=== PATIENT | male | born 1955 | race Caucasian/White ===

== ENCOUNTER 2019-02-24 09:57 | Inpatient (IN) | payer MEDICARE, MEDICAID ==
[~2019-02-24] VITALS: Ht 165.1 cm; Wt 62.6 kg
[2019-02-24] MEDS ORDERED: SODIUM CHLORIDE 0.9% 1000ML BAG (SEPSIS BOLUS) IV ONE (10:30)
[2019-02-24 10:53] LABS: HEMATOCRIT. 39.3 % (42.0-52.0); HEMOGLOBIN. 13.3 g/dL (14.0-18.0); MEAN CORPUSCULAR HEMOGLOBIN 32.1 pg (28.0-32.0); MEAN CORPUSCULAR VOLUME 94.5 fL (80.0-94.0); MEAN PLATELET VOLUME 9.6 fl (7.4-10.4); PLATELET 89 x1000/uL (130-400); RED BLOOD CELL COUNT 4.16 mill/uL (4.7-6.1); RED CELL DISTRIBUTION WIDTH 15.3 % (11.6-14.6)
[2019-02-24 10:57] LABS: CHLORIDE 108 mEq/L (98-107)
[2019-02-24 11:05] LABS: CREATINE KINASE 58 IU/L (39-308)
[2019-02-24 11:16] LABS: PLATELET ESTIMATE DECREASED
[2019-02-24 14:43] LABS: CLARITY URINE TURBID (CLEAR); COLOR URINE AMBER (YELLOW); KETONES URINE TRACE (NEGATIVE); LEUKOCYTE ESTERASE URINE 3+ (NEGATIVE); NITRITE URINE NEGATIVE (NEGATIVE); OCCULT BLOOD URINE 3+ (NEGATIVE); PH URINE 5.5 (4.5-8.0); PROTEIN URINE 2+ (NEGATIVE); SPECIFIC GRAVITY URINE 1.019 (1.005-1.030)
[2019-02-24 17:45] VITALS: BP 115/69
[2019-02-24 17:47] VITALS: BP 115/69
[2019-02-24] MEDS ORDERED: NITROGLYCERIN 0.4MG TABLET SL SL PRN (18:00)
[2019-02-24] MEDS ORDERED: KETOROLAC 15MG/ML VIAL IV PRN (18:00)
[2019-02-24] MEDS ORDERED: CLONIDINE 0.1MG TABLET PO PRN (18:00)
[2019-02-24] MEDS ORDERED: ZOLPIDEM TARTRATE 5MG TABLET PO PRN (18:00)
[2019-02-24] MEDS ORDERED: PIPERACILLIN/TAZ 3.375G PREMIX 50 ML IV SCH (18:00)
[2019-02-24] MEDS ORDERED: MAGNESIUM/ALUMINUM HYDROXIDE/SIMETHICONE 30ML UDC PO PRN (18:00)
[2019-02-24] MEDS ORDERED: IPRATROPIUM/ALBUTEROL 0.5-3(2.5)MG/3ML NEB NEB PRN (18:00)
[2019-02-24] MEDS: DEXT 5%/0.9% NACL 1,000 ML IV SCH (19:02)
[2019-02-24 19:36] LABS: FOLIC ACID (FOLATE) SERUM 11.4 ng/mL (>5.38)
[2019-02-24 20:00] VITALS: BP 115/71
[2019-02-24] MEDS ORDERED: ENOXAPARIN 40MG/0.4ML SYR SUBCUT SCH (20:00)
[2019-02-24] MEDS: PIPERACILLIN/TAZOBACTAM 3.375 G in DEXT 5% WATER 100 ML IV SCH (22:07)
[2019-02-24] MEDS: VANCOMYCIN 1 G PREMIX 200 ML IV SCH (22:09)
[2019-02-24] MEDS: FAMOTIDINE 20MG TABLET PO SCH (22:10)
[2019-02-24] MEDS: ASCORBIC ACID 500 MG TABLET PO SCH (22:10)
[2019-02-24] MEDS: GUAIFENESIN 200MG/10ML SUGAR FREE UDC PO PRN (22:11)
[2019-02-25] VITALS: BP 101/54
[2019-02-25 01:26] LABS: CREATINE KINASE 44 IU/L (39-308); CREATINE KINASE MB FRACTION 6.3 ng/mL (0.5-3.6)
[2019-02-25 04:00] VITALS: BP 112/56
[2019-02-25] MEDS: PIPERACILLIN/TAZOBACTAM 3.375 G in DEXT 5% WATER 100 ML IV SCH ×3 (04:52→21:13)
[2019-02-25] MEDS: DEXT 5%/0.9% NACL 1,000 ML IV SCH ×2 (04:53→15:20)
[2019-02-25 07:26] LABS: CREATINE KINASE 41 IU/L (39-308)
[2019-02-25 07:27] LABS: CREATINE KINASE MB FRACTION 5.7 ng/mL (0.5-3.6)
[2019-02-25 08:00] VITALS: BP 100/51
[2019-02-25] MEDS: FAMOTIDINE 20MG TABLET PO SCH ×2 (08:56→21:00)
[2019-02-25] MEDS: ASCORBIC ACID 500 MG TABLET PO SCH ×3 (08:56→21:00)
[2019-02-25] MEDS: ASPIRIN 325MG EC TABLET PO SCH ×2 (08:56→09:00)
[2019-02-25] MEDS: ZINC SULFATE 220 MG ( 50 ) CAPSULE PO SCH ×2 (08:57→09:00)
[2019-02-25] MEDS: VANCOMYCIN 1 G PREMIX 200 ML IV SCH ×2 (08:57→21:13)
[2019-02-25 12:00] VITALS: BP 81/34
[2019-02-25 16:00] VITALS: BP 83/54
[2019-02-25] MEDS ORDERED: SODIUM CHLORIDE 0.9% 1,000 ML IV SCH (16:45)
[2019-02-25 20:00] VITALS: BP 87/46
[2019-02-26] VITALS (7 sets, daily range): BP systolic 84–104; BP diastolic 33–54
[2019-02-26] MEDS: DEXT 5%/0.9% NACL 1,000 ML IV SCH ×3 (02:27→21:29)
[2019-02-26] MEDS: PIPERACILLIN/TAZOBACTAM 3.375 G in DEXT 5% WATER 100 ML IV SCH (05:00)
[2019-02-26 06:05] LABS: BASOPHILS % 0.6 % (0.0-2.0); EOSINOPHILS % 0.5 % (0.0-5.0); HEMATOCRIT. 32.3 % (42.0-52.0); HEMOGLOBIN. 10.9 g/dL (14.0-18.0); LYMPHOCYTES % 17.8 % (20.0-50.0); MEAN CORPUSCULAR HEMOGLOBIN 31.5 pg (28.0-32.0); MEAN CORPUSCULAR VOLUME 93.8 fL (80.0-94.0); MEAN PLATELET VOLUME 10.4 fl (7.4-10.4); MONOCYTES % 10.6 % (2.0-8.0); NEUTROPHILS % 70.5 % (40.0-76.0); PLATELET 78 x1000/uL (130-400); RED BLOOD CELL COUNT 3.44 mill/uL (4.7-6.1); RED CELL DISTRIBUTION WIDTH 14.9 % (11.6-14.6)
[2019-02-26 06:12] LABS: CHLORIDE 116 mEq/L (98-107)
[2019-02-26 06:15] LABS: INR 1.1; PROTHROMBIN TIME 10.9 sec (9.6-11.0)
[2019-02-26 06:43] LABS: HEPATITIS B SURFACE ANTIGEN NEGATIVE
[2019-02-26 07:12] LABS: HEPATITIS A AB IGM NEGATIVE (NEGATIVE)
[2019-02-26] MEDS: ZINC SULFATE 220 MG ( 50 ) CAPSULE PO SCH (09:00)
[2019-02-26] MEDS: ASPIRIN 325MG EC TABLET PO SCH (09:00)
[2019-02-26] MEDS: ASCORBIC ACID 500 MG TABLET PO SCH ×2 (09:00→21:00)
[2019-02-26] MEDS: FAMOTIDINE 20MG TABLET PO SCH ×2 (09:00→21:00)
[2019-02-26] MEDS: MEROPENEM 1,000 MG in SODIUM CHLORIDE 0.9% 100 ML IV SCH ×2 (12:24→21:30)
[2019-02-26] MEDS: VANCOMYCIN 750 MG PREMIX 150 ML IV SCH (13:09)
[2019-02-26] MEDS: ALBUMIN HUMAN 25GM/100ML (25%) IV SCH ×2 (14:51→21:31)
[2019-02-26] MEDS ORDERED: POTASSIUM CHLORIDE INJ 40 MEQ in DEXT 5% WATER 250 ML IV SCH (16:00)
[2019-02-27] VITALS: BP 106/47
[2019-02-27] MEDS: VANCOMYCIN 750 MG PREMIX 150 ML IV SCH ×2 (01:23→13:05)
[2019-02-27] MEDS ORDERED: BACL-141 PO (02:49)
[2019-02-27] MEDS ORDERED: SIMV10TA6 PO (02:49)
[2019-02-27] MEDS ORDERED: RISP1TAB26 PO (02:49)
[2019-02-27] MEDS ORDERED: DIPH50CA47 PO (02:49)
[2019-02-27] MEDS ORDERED: OMEP20CA5 PO (02:49)
[2019-02-27] MEDS ORDERED: FERR325T6 PO (02:49)
[2019-02-27 04:00] VITALS: BP 95/51
[2019-02-27] MEDS: MEROPENEM 1,000 MG in SODIUM CHLORIDE 0.9% 100 ML IV SCH ×3 (04:54→20:49)
[2019-02-27] MEDS: ALBUMIN HUMAN 25GM/100ML (25%) IV SCH (05:00)
[2019-02-27] MEDS: DEXT 5%/0.9% NACL 1,000 ML IV SCH ×2 (05:01→18:36)
[2019-02-27 08:00] VITALS: BP 99/55
[2019-02-27] MEDS: ASCORBIC ACID 500 MG TABLET PO SCH ×2 (09:00→20:49)
[2019-02-27] MEDS: ZINC SULFATE 220 MG ( 50 ) CAPSULE PO SCH (09:00)
[2019-02-27] MEDS: ASPIRIN 325MG EC TABLET PO SCH (09:00)
[2019-02-27] MEDS: FAMOTIDINE 20MG TABLET PO SCH ×2 (09:00→20:49)
[2019-02-27 12:00] VITALS: BP 126/73
[2019-02-27 16:00] VITALS: BP 141/73
[2019-02-27 20:00] VITALS: BP 111/64
[2019-02-28] VITALS: BP 118/63
[2019-02-28] MEDS: VANCOMYCIN 750 MG PREMIX 150 ML IV SCH ×2 (00:28→14:22)
[2019-02-28 04:00] VITALS: BP 124/61
[2019-02-28] MEDS: DEXT 5%/0.9% NACL 1,000 ML IV SCH ×2 (04:28→14:20)
[2019-02-28] MEDS: MEROPENEM 1,000 MG in SODIUM CHLORIDE 0.9% 100 ML IV SCH ×3 (04:28→21:06)
[2019-02-28 08:00] VITALS: BP 121/58
[2019-02-28] MEDS: FAMOTIDINE 20MG TABLET PO SCH ×2 (09:00→21:00)
[2019-02-28] MEDS: ZINC SULFATE 220 MG ( 50 ) CAPSULE PO SCH (09:00)
[2019-02-28] MEDS: ASCORBIC ACID 500 MG TABLET PO SCH ×2 (09:00→21:00)
[2019-02-28] MEDS: ASPIRIN 325MG EC TABLET PO SCH (09:00)
[2019-02-28 12:00] VITALS: BP 124/69
[2019-02-28 16:00] VITALS: BP 126/57
[2019-02-28 20:00] VITALS: BP 132/66
[2019-03-01] VITALS: BP 121/71
[2019-03-01] MEDS: VANCOMYCIN 1 G PREMIX 200 ML IV SCH ×2 (02:36→13:48)
[2019-03-01] MEDS: DEXT 5%/0.9% NACL 1,000 ML IV SCH (02:42)
[2019-03-01 04:00] VITALS: BP 125/56
[2019-03-01] MEDS: MEROPENEM 1,000 MG in SODIUM CHLORIDE 0.9% 100 ML IV SCH ×3 (05:06→22:32)
[2019-03-01 07:18] LABS: BASOPHILS % 0.4 % (0.0-2.0); EOSINOPHILS % 0.9 % (0.0-5.0); HEMATOCRIT. 32.1 % (42.0-52.0); HEMOGLOBIN. 10.9 g/dL (14.0-18.0); LYMPHOCYTES % 11.5 % (20.0-50.0); MEAN CORPUSCULAR HEMOGLOBIN 32.4 pg (28.0-32.0); MEAN CORPUSCULAR VOLUME 95.3 fL (80.0-94.0); MEAN PLATELET VOLUME 10.9 fl (7.4-10.4); MONOCYTES % 9.7 % (2.0-8.0); NEUTROPHILS % 77.5 % (40.0-76.0); PLATELET 89 x1000/uL (130-400); RED BLOOD CELL COUNT 3.37 mill/uL (4.7-6.1); RED CELL DISTRIBUTION WIDTH 15.2 % (11.6-14.6)
[2019-03-01 07:36] LABS: CHLORIDE 121 mEq/L (98-107)
[2019-03-01 08:00] VITALS: BP 110/65
[2019-03-01] MEDS: ZINC SULFATE 220 MG ( 50 ) CAPSULE PO SCH (09:00)
[2019-03-01] MEDS: FAMOTIDINE 20MG TABLET PO SCH ×2 (09:00→22:32)
[2019-03-01] MEDS: ASPIRIN 325MG EC TABLET PO SCH (09:00)
[2019-03-01] MEDS: ASCORBIC ACID 500 MG TABLET PO SCH ×2 (09:00→22:33)
[2019-03-01] MEDS: POTASSIUM CHLORIDE INJ 40 MEQ in DEXT 5% WATER 250 ML IV NR ×2 (11:44→15:46)
[2019-03-01 12:00] VITALS: BP 122/59
[2019-03-01 16:00] VITALS: BP 121/56
[2019-03-01 20:35] VITALS: BP 122/80
[2019-03-02 00:06] VITALS: BP 130/50
[2019-03-02 04:00] VITALS: BP 137/58
[2019-03-02] MEDS: VANCOMYCIN 1 G PREMIX 200 ML IV SCH ×2 (05:39→21:55)
[2019-03-02] MEDS: MEROPENEM 1,000 MG in SODIUM CHLORIDE 0.9% 100 ML IV SCH ×3 (05:40→21:54)
[2019-03-02 07:58] LABS: BASOPHILS % 0.6 % (0.0-2.0); EOSINOPHILS % 3.1 % (0.0-5.0); HEMATOCRIT. 34.7 % (42.0-52.0); HEMOGLOBIN. 11.8 g/dL (14.0-18.0); LYMPHOCYTES % 13.5 % (20.0-50.0); MEAN CORPUSCULAR HEMOGLOBIN 32.3 pg (28.0-32.0); MEAN CORPUSCULAR VOLUME 95.2 fL (80.0-94.0); MONOCYTES % 8.6 % (2.0-8.0); NEUTROPHILS % 74.2 % (40.0-76.0); PLATELET 124 x1000/uL (130-400); RED BLOOD CELL COUNT 3.65 mill/uL (4.7-6.1)
[2019-03-02 08:00] VITALS: BP 121/56
[2019-03-02 08:32] LABS: CHLORIDE 120 mEq/L (98-107)
[2019-03-02] MEDS: ASCORBIC ACID 500 MG TABLET PO SCH ×2 (09:30→21:52)
[2019-03-02] MEDS: ZINC SULFATE 220 MG ( 50 ) CAPSULE PO SCH (09:31)
[2019-03-02] MEDS: ASPIRIN 325MG EC TABLET PO SCH (09:31)
[2019-03-02] MEDS: DEXT 5%/0.9% NACL 1,000 ML IV SCH (09:36)
[2019-03-02] MEDS: FAMOTIDINE 20MG TABLET PO SCH ×2 (09:40→21:53)
[2019-03-02 12:00] VITALS: BP 112/47
[2019-03-02 16:00] VITALS: BP 95/65
[2019-03-02 20:04] VITALS: BP 114/60
[2019-03-02] MEDS: ACETAMINOPHEN 325MG TABLET PO PRN (23:45)
[2019-03-03 00:11] VITALS: BP 102/60
[2019-03-03 04:00] VITALS: BP 111/58
[2019-03-03 06:55] LABS: BASOPHILS % 0.8 % (0.0-2.0); EOSINOPHILS % 6.1 % (0.0-5.0); HEMOGLOBIN. 11.8 g/dL (14.0-18.0); LYMPHOCYTES % 13.7 % (20.0-50.0); MEAN CORPUSCULAR HEMOGLOBIN 32.2 pg (28.0-32.0); MEAN CORPUSCULAR VOLUME 95.6 fL (80.0-94.0); MEAN PLATELET VOLUME 10.8 fl (7.4-10.4); MONOCYTES % 6.2 % (2.0-8.0); NEUTROPHILS % 73.2 % (40.0-76.0); PLATELET 156 x1000/uL (130-400); RED BLOOD CELL COUNT 3.66 mill/uL (4.7-6.1); RED CELL DISTRIBUTION WIDTH 14.8 % (11.6-14.6)
[2019-03-03 07:33] LABS: CHLORIDE 116 mEq/L (98-107)
[2019-03-03 08:00] VITALS: BP 104/56
[2019-03-03] MEDS: FAMOTIDINE 20MG TABLET PO SCH ×2 (09:42→23:12)
[2019-03-03] MEDS: DOCUSATE SODIUM 100MG CAPSULE PO PRN (09:42)
[2019-03-03] MEDS: ZINC SULFATE 220 MG ( 50 ) CAPSULE PO SCH (09:42)
[2019-03-03] MEDS: ASPIRIN 325MG EC TABLET PO SCH (09:42)
[2019-03-03] MEDS: ASCORBIC ACID 500 MG TABLET PO SCH ×2 (09:42→23:12)
[2019-03-03] MEDS: VANCOMYCIN 1 G PREMIX 200 ML IV SCH ×2 (10:17→18:24)
[2019-03-03 12:00] VITALS: BP 109/66
[2019-03-03] MEDS: MEROPENEM 1,000 MG in SODIUM CHLORIDE 0.9% 100 ML IV SCH ×3 (13:00→23:12)
[2019-03-03 16:00] VITALS: BP 114/62
[2019-03-03 20:50] VITALS: BP 106/73
[2019-03-04 00:26] VITALS: BP 113/70
[2019-03-04 04:00] VITALS: BP 107/52
[2019-03-04] MEDS: MEROPENEM 1,000 MG in SODIUM CHLORIDE 0.9% 100 ML IV SCH ×2 (05:47→20:23)
[2019-03-04 06:15] LABS: BASOPHILS % 0.7 % (0.0-2.0); EOSINOPHILS % 4.9 % (0.0-5.0); HEMATOCRIT. 37.8 % (42.0-52.0); HEMOGLOBIN. 12.4 g/dL (14.0-18.0); LYMPHOCYTES % 10.4 % (20.0-50.0); MEAN CORPUSCULAR HEMOGLOBIN 31.9 pg (28.0-32.0); MEAN CORPUSCULAR VOLUME 96.8 fL (80.0-94.0); MEAN PLATELET VOLUME 11.4 fl (7.4-10.4); MONOCYTES % 4.2 % (2.0-8.0); NEUTROPHILS % 79.8 % (40.0-76.0); PLATELET 163 x1000/uL (130-400); RED CELL DISTRIBUTION WIDTH 15.4 % (11.6-14.6)
[2019-03-04 06:20] LABS: CHLORIDE 114 mEq/L (98-107)
[2019-03-04 08:00] VITALS: BP 94/60
[2019-03-04] MEDS: FAMOTIDINE 20MG TABLET PO SCH ×2 (10:03→20:23)
[2019-03-04] MEDS: ASPIRIN 325MG EC TABLET PO SCH (10:03)
[2019-03-04] MEDS: ASCORBIC ACID 500 MG TABLET PO SCH ×2 (10:03→20:23)
[2019-03-04] MEDS: GUAIFENESIN 200MG/10ML SUGAR FREE UDC PO PRN (10:04)
[2019-03-04] MEDS: ZINC SULFATE 220 MG ( 50 ) CAPSULE PO SCH (10:07)
[2019-03-04 12:00] VITALS: BP 106/63
[2019-03-04 16:00] VITALS: BP 100/56
[2019-03-04 20:23] VITALS: BP 106/53
[2019-03-05 00:15] VITALS: BP 97/62
[2019-03-05 04:28] VITALS: BP 108/55
[2019-03-05 06:34] LABS: CHLORIDE 116 mEq/L (98-107)
[2019-03-05] MEDS: MEROPENEM 1,000 MG in SODIUM CHLORIDE 0.9% 100 ML IV SCH ×3 (06:34→21:36)
[2019-03-05 07:28] LABS: BASOPHILS % 0.7 % (0.0-2.0); EOSINOPHILS % 1.9 % (0.0-5.0); HEMOGLOBIN. 11.1 g/dL (14.0-18.0); LYMPHOCYTES % 8.5 % (20.0-50.0); MEAN CORPUSCULAR HEMOGLOBIN 32.2 pg (28.0-32.0); MEAN CORPUSCULAR VOLUME 95.9 fL (80.0-94.0); MONOCYTES % 4.3 % (2.0-8.0); NEUTROPHILS % 84.6 % (40.0-76.0); PLATELET 185 x1000/uL (130-400); RED BLOOD CELL COUNT 3.44 mill/uL (4.7-6.1); RED CELL DISTRIBUTION WIDTH 15.2 % (11.6-14.6)
[2019-03-05 08:00] VITALS: BP 108/57
[2019-03-05] MEDS: ZINC SULFATE 220 MG ( 50 ) CAPSULE PO SCH (09:03)
[2019-03-05] MEDS: FAMOTIDINE 20MG TABLET PO SCH ×2 (09:03→20:40)
[2019-03-05] MEDS: ASCORBIC ACID 500 MG TABLET PO SCH ×2 (09:03→20:40)
[2019-03-05] MEDS: ASPIRIN 325MG EC TABLET PO SCH (09:03)
[2019-03-05 12:00] VITALS: BP 99/48
[2019-03-05 16:00] VITALS: BP 118/64
[2019-03-05 20:00] VITALS: BP 126/69
[2019-03-06 00:16] VITALS: BP 117/62
[2019-03-06 04:36] VITALS: BP 123/68
[2019-03-06 08:56] VITALS: BP 132/70
[2019-03-06] MEDS: ZINC SULFATE 220 MG ( 50 ) CAPSULE PO SCH (09:06)
[2019-03-06] MEDS: ASCORBIC ACID 500 MG TABLET PO SCH ×2 (09:06→20:40)
[2019-03-06] MEDS: FAMOTIDINE 20MG TABLET PO SCH ×2 (09:06→20:40)
[2019-03-06] MEDS: ASPIRIN 325MG EC TABLET PO SCH (09:06)
[2019-03-06 12:21] VITALS: BP 126/57
[2019-03-06 16:07] VITALS: BP 134/68
[2019-03-06] MEDS: ACETAMINOPHEN 325MG TABLET PO PRN (16:47)
[2019-03-06 20:00] VITALS: BP 117/64
[2019-03-07] VITALS (8 sets, daily range): BP systolic 82–129; BP diastolic 44–84
[2019-03-07] MEDS: ACETAMINOPHEN 325MG TABLET PO PRN (04:22)
[2019-03-07] MEDS: ASPIRIN 325MG EC TABLET PO SCH (09:00)
[2019-03-07] MEDS: FAMOTIDINE 20MG TABLET PO SCH ×2 (09:00→21:00)
[2019-03-07] MEDS: GUAIFENESIN 200MG/10ML SUGAR FREE UDC PO PRN (09:49)
[2019-03-07] MEDS: ASCORBIC ACID 500 MG TABLET PO SCH ×2 (09:49→21:00)
[2019-03-07] MEDS: ZINC SULFATE 220 MG ( 50 ) CAPSULE PO SCH (09:49)
[2019-03-07 15:11] LABS: BG CARBOXYHEMOGLOBIN 1.3 % (0.5-1.5); BG DEOXYHEMOGLOBIN 2.4 % (0.0-5.0); BG FRACTION INSPIRED OXYGEN 100; BG HCO3 ACT 26.2 mmol/L (22.0-26.0); BG METHEMOGLOBIN 0.1 % (0.0-1.5); BG OXYGEN SATURATION 97.6 % (92.0-98.5); BG OXYHEMOGLOBIN 96.2 % (94.0-97.0); BG PCO2 43.9 mmHg (35.0-45.0); BG PH 7.394 (7.350-7.450); BG PO2 101.6 mmHg (75.0-100.0); BG SAMPLE SITE LEFT RADIAL; BG TOTAL HEMOGLOBIN 13.8 g/dL (12.0-18.0); BG VENT MODE MASK - NRB
[2019-03-07 17:21] LABS: BASOPHILS % 1.4 % (0.0-2.0); EOSINOPHILS % 0.4 % (0.0-5.0); HEMATOCRIT. 37.9 % (42.0-52.0); HEMOGLOBIN. 12.9 g/dL (14.0-18.0); LYMPHOCYTES % 9.4 % (20.0-50.0); MEAN CORPUSCULAR HEMOGLOBIN 32.6 pg (28.0-32.0); MEAN CORPUSCULAR VOLUME 96.3 fL (80.0-94.0); MEAN PLATELET VOLUME 10.1 fl (7.4-10.4); MONOCYTES % 10.1 % (2.0-8.0); NEUTROPHILS % 78.7 % (40.0-76.0); PLATELET 333 x1000/uL (130-400); RED BLOOD CELL COUNT 3.94 mill/uL (4.7-6.1); RED CELL DISTRIBUTION WIDTH 15.2 % (11.6-14.6)
[2019-03-07 17:27] LABS: CHLORIDE 115 mEq/L (98-107)
[2019-03-07] MEDS: PIPERACILLIN/TAZOBACTAM 3.375 G in DEXT 5% WATER 100 ML IV SCH (18:00)
[2019-03-07] MEDS ORDERED: POTASSIUM CHLORIDE INJ 40 MEQ in DEXT 5% WATER 500 ML IV NR (20:00)
[2019-03-07] MEDS: DEXT 5%/0.45% NACL KCL 20MEQ/L 1,000 ML IV SCH (20:50)
[2019-03-07] MEDS: IPRATROPIUM/ALBUTEROL 0.5-3(2.5)MG/3ML NEB HHN SCH (21:11)
[2019-03-08] VITALS (13 sets, daily range): BP systolic 77–111; BP diastolic 41–60
[2019-03-08] MEDS: IPRATROPIUM/ALBUTEROL 0.5-3(2.5)MG/3ML NEB HHN SCH ×4 (00:25→21:20)
[2019-03-08] MEDS: ACETAMINOPHEN 325MG TABLET PO PRN (01:48)
[2019-03-08] MEDS: PIPERACILLIN/TAZOBACTAM 3.375 G in DEXT 5% WATER 100 ML IV SCH ×5 (05:39→18:18)
[2019-03-08] MEDS: DEXT 5%/0.45% NACL KCL 20MEQ/L 1,000 ML IV SCH ×2 (06:29→12:50)
[2019-03-08] MEDS: ASCORBIC ACID 500 MG TABLET PO SCH ×2 (09:05→21:40)
[2019-03-08] MEDS: ASPIRIN 325MG EC TABLET PO SCH (09:05)
[2019-03-08] MEDS: ZINC SULFATE 220 MG ( 50 ) CAPSULE PO SCH (09:05)
[2019-03-08 09:42] LABS: BASOPHILS % 1.5 % (0.0-2.0); EOSINOPHILS % 5.3 % (0.0-5.0); HEMATOCRIT. 32.4 % (42.0-52.0); HEMOGLOBIN. 10.6 g/dL (14.0-18.0); MEAN CORPUSCULAR HEMOGLOBIN 32.2 pg (28.0-32.0); MEAN CORPUSCULAR VOLUME 98.1 fL (80.0-94.0); MEAN PLATELET VOLUME 10.4 fl (7.4-10.4); MONOCYTES % 11.1 % (2.0-8.0); NEUTROPHILS % 65.1 % (40.0-76.0); PLATELET 213 x1000/uL (130-400); RED CELL DISTRIBUTION WIDTH 15.1 % (11.6-14.6)
[2019-03-08 09:50] LABS: CHLORIDE 116 mEq/L (98-107)
[2019-03-08] MEDS ORDERED: POTASSIUM CHLORIDE 20MEQ/PACKET PO NR (12:45)
[2019-03-08] MEDS: FAMOTIDINE 20MG TABLET PO SCH ×2 (13:04→21:40)
[2019-03-08] MEDS ORDERED: POTASSIUM CHLORIDE INJ 40 MEQ in DEXT 5% WATER 500 ML IV NR (14:00)
[2019-03-08 17:21] LABS: BG BASE EXCESS 2.1 mmol/L (-2.0-2.0); BG CARBOXYHEMOGLOBIN 0.3 % (0.5-1.5); BG DEOXYHEMOGLOBIN 9.6 % (0.0-5.0); BG HCO3 ACT 24.7 mmol/L (22.0-26.0); BG METHEMOGLOBIN 0.3 % (0.0-1.5); BG OXYGEN SATURATION 90.3 % (92.0-98.5); BG OXYHEMOGLOBIN 89.8 % (94.0-97.0); BG PCO2 31.2 mmHg (35.0-45.0); BG PH 7.516 (7.350-7.450); BG PO2 54.6 mmHg (75.0-100.0); BG SAMPLE SITE RIGHT BRACHIAL; BG TOTAL HEMOGLOBIN 10.3 g/dL (12.0-18.0); BG VENT MODE NASAL CANNULA
[2019-03-09] VITALS (12 sets, daily range): BP systolic 98–137; BP diastolic 51–71
[2019-03-09] MEDS: PIPERACILLIN/TAZOBACTAM 3.375 G in DEXT 5% WATER 100 ML IV SCH ×5 (01:06→23:25)
[2019-03-09] MEDS: IPRATROPIUM/ALBUTEROL 0.5-3(2.5)MG/3ML NEB HHN SCH ×4 (01:56→20:52)
[2019-03-09] MEDS: DEXT 5%/0.45% NACL KCL 20MEQ/L 1,000 ML IV SCH ×2 (03:16→12:58)
[2019-03-09 09:01] LABS: BG BASE EXCESS 0.4 mmol/L (-2.0-2.0); BG CARBOXYHEMOGLOBIN 0.3 % (0.5-1.5); BG DEOXYHEMOGLOBIN 5.2 % (0.0-5.0); BG FRACTION INSPIRED OXYGEN 21; BG HCO3 ACT 23.6 mmol/L (22.0-26.0); BG METHEMOGLOBIN 0.3 % (0.0-1.5); BG OXYGEN SATURATION 94.8 % (92.0-98.5); BG OXYHEMOGLOBIN 94.2 % (94.0-97.0); BG PCO2 32.5 mmHg (35.0-45.0); BG PH 7.478 (7.350-7.450); BG PO2 73.3 mmHg (75.0-100.0); BG SAMPLE SITE LEFT RADIAL; BG TOTAL HEMOGLOBIN 10.3 g/dL (12.0-18.0); BG VENT MODE ROOM AIR
[2019-03-09] MEDS: ASPIRIN 325MG EC TABLET PO SCH (09:53)
[2019-03-09] MEDS: ZINC SULFATE 220 MG ( 50 ) CAPSULE PO SCH (09:54)
[2019-03-09] MEDS: FAMOTIDINE 20MG TABLET PO SCH ×2 (09:54→21:12)
[2019-03-09] MEDS: ASCORBIC ACID 500 MG TABLET PO SCH ×2 (09:54→20:11)
[2019-03-09 17:34] LABS: BASOPHILS % 1.7 % (0.0-2.0); EOSINOPHILS % 6.7 % (0.0-5.0); HEMATOCRIT. 30.8 % (42.0-52.0); LYMPHOCYTES % 20.2 % (20.0-50.0); MEAN CORPUSCULAR HEMOGLOBIN 31.5 pg (28.0-32.0); MEAN CORPUSCULAR VOLUME 96.7 fL (80.0-94.0); MEAN PLATELET VOLUME 9.7 fl (7.4-10.4); MONOCYTES % 6.8 % (2.0-8.0); NEUTROPHILS % 64.6 % (40.0-76.0); PLATELET 221 x1000/uL (130-400); RED BLOOD CELL COUNT 3.19 mill/uL (4.7-6.1); RED CELL DISTRIBUTION WIDTH 15.1 % (11.6-14.6)
[2019-03-09 17:37] LABS: INR 1.2; PROTHROMBIN TIME 11.9 sec (9.6-11.0)
[2019-03-09 17:39] LABS: CHLORIDE 116 mEq/L (98-107)
[2019-03-09 17:45] LABS: PHOSPHORUS 1.8 mg/dL (2.5-4.9)
[2019-03-09] MEDS ORDERED: WATER IV SCH (19:00)
[2019-03-09] MEDS ORDERED: DEXT 5% IV SCH (19:00)
[2019-03-09] MEDS ORDERED: POTASSIUM CHLORIDE IV SCH (19:00)
[2019-03-09] MEDS ORDERED: POTASSIUM-SODIUM PHOSPHATE POWDER PACKET NG NR ×2 (19:00→21:00)
[2019-03-09] MEDS: DEXT 5%/0.45% NACL KCL 40MEQ/L 1,000 ML IV SCH (23:25)
[2019-03-10] VITALS (7 sets, daily range): BP systolic 101–130; BP diastolic 55–72
[2019-03-10] MEDS: IPRATROPIUM/ALBUTEROL 0.5-3(2.5)MG/3ML NEB HHN SCH ×4 (02:13→21:36)
[2019-03-10] MEDS: PIPERACILLIN/TAZOBACTAM 3.375 G in DEXT 5% WATER 100 ML IV SCH ×4 (05:12→22:59)
[2019-03-10 07:06] LABS: CHLORIDE 112 mEq/L (98-107)
[2019-03-10 07:15] LABS: PHOSPHORUS 2.2 mg/dL (2.5-4.9)
[2019-03-10] MEDS: FAMOTIDINE 20MG TABLET PO SCH ×2 (08:30→21:30)
[2019-03-10] MEDS: ASPIRIN 325MG EC TABLET PO SCH (08:30)
[2019-03-10] MEDS: ASCORBIC ACID 500 MG TABLET PO SCH ×2 (08:30→21:30)
[2019-03-10] MEDS: ZINC SULFATE 220 MG ( 50 ) CAPSULE PO SCH (08:30)
[2019-03-10] MEDS: DEXT 5%/0.45% NACL KCL 40MEQ/L 1,000 ML IV SCH ×2 (12:48→21:30)
[2019-03-10] MEDS ORDERED: POTASSIUM CHLORIDE INJ 40 MEQ in DEXT 5% WATER 250 ML IV NR (14:00)
[2019-03-10] MEDS ORDERED: MAGNESIUM 2 G PREMIX 50 ML IV NR (14:30)
[2019-03-10] MEDS: ACETYLCYSTEINE 100MG/ML 10% VIAL 4ML INH SCH (16:03)
[2019-03-10] MEDS ORDERED: METOCLOPRAMIDE HCL 10MG/2ML VIAL IV NR (16:15)
[2019-03-10] MEDS ORDERED: POTASSIUM CHLORIDE 20MEQ/PACKET PO NR (16:30)
[2019-03-10] MEDS ORDERED: FENTANYL CITRATE/PF 50MCG/ML 2ML VIAL ONE (18:46)
[2019-03-10] MEDS ORDERED: SIMETHICONE 40 MG/0.6 ML 30ML ONE (18:46)
[2019-03-10] MEDS ORDERED: MIDAZOLAM HCL 5 MG/5 ML VIAL ONE (18:46)
[2019-03-10] MEDS ORDERED: FENTANYL CITRATE/PF 50MCG/ML 2ML VIAL IV PRN (18:56)
[2019-03-10] MEDS ORDERED: MIDAZOLAM HCL 5 MG/5 ML VIAL IV PRN (18:57)
[2019-03-11] VITALS (9 sets, daily range): BP systolic 93–133; BP diastolic 53–74
[2019-03-11] MEDS: ACETYLCYSTEINE 100MG/ML 10% VIAL 4ML INH SCH ×3 (00:46→15:42)
[2019-03-11] MEDS: IPRATROPIUM/ALBUTEROL 0.5-3(2.5)MG/3ML NEB HHN SCH ×6 (00:46→21:00)
[2019-03-11] MEDS: PIPERACILLIN/TAZOBACTAM 3.375 G in DEXT 5% WATER 100 ML IV SCH ×3 (05:13→18:51)
[2019-03-11] MEDS: ASCORBIC ACID 500 MG TABLET PO SCH ×2 (08:25→21:29)
[2019-03-11] MEDS: DEXT 5%/0.45% NACL KCL 40MEQ/L 1,000 ML IV SCH (08:25)
[2019-03-11] MEDS: ASPIRIN 325MG EC TABLET PO SCH (08:25)
[2019-03-11] MEDS: ZINC SULFATE 220 MG ( 50 ) CAPSULE PO SCH (08:26)
[2019-03-11] MEDS: FAMOTIDINE 20MG TABLET PO SCH ×2 (08:26→21:29)
[2019-03-11] MEDS ORDERED: FUROSEMIDE 40MG/4ML VIAL IVP SCH (13:15)
[2019-03-11 17:52] LABS: CHLORIDE 110 mEq/L (98-107)
[2019-03-11 17:58] LABS: PHOSPHORUS 3.1 mg/dL (2.5-4.9)
[2019-03-12] VITALS (14 sets, daily range): BP systolic 88–117; BP diastolic 45–71
[2019-03-12] MEDS ORDERED: DEXT 5%/0.45% NACL 1000ML 1,000 ML IV ONE
[2019-03-12] MEDS: PIPERACILLIN/TAZOBACTAM 3.375 G in DEXT 5% WATER 100 ML IV SCH ×5 (00:14→23:11)
[2019-03-12] MEDS: ACETYLCYSTEINE 100MG/ML 10% VIAL 4ML INH SCH ×3 (00:29→17:05)
[2019-03-12] MEDS: IPRATROPIUM/ALBUTEROL 0.5-3(2.5)MG/3ML NEB HHN SCH ×6 (00:30→21:25)
[2019-03-12 06:04] LABS: CHLORIDE 108 mEq/L (98-107)
[2019-03-12 06:29] LABS: BASOPHILS % 0.7 % (0.0-2.0); EOSINOPHILS % 4.3 % (0.0-5.0); HEMATOCRIT. 33.6 % (42.0-52.0); HEMOGLOBIN. 11.2 g/dL (14.0-18.0); MEAN CORPUSCULAR HEMOGLOBIN 31.9 pg (28.0-32.0); MEAN CORPUSCULAR VOLUME 95.5 fL (80.0-94.0); MEAN PLATELET VOLUME 9.8 fl (7.4-10.4); MONOCYTES % 4.2 % (2.0-8.0); NEUTROPHILS % 74.8 % (40.0-76.0); PLATELET 282 x1000/uL (130-400); RED BLOOD CELL COUNT 3.52 mill/uL (4.7-6.1); RED CELL DISTRIBUTION WIDTH 14.9 % (11.6-14.6)
[2019-03-12] MEDS: ZINC SULFATE 220 MG ( 50 ) CAPSULE PO SCH (08:50)
[2019-03-12] MEDS: FAMOTIDINE 20MG TABLET PO SCH ×2 (08:50→20:20)
[2019-03-12] MEDS: ASPIRIN 325MG EC TABLET PO SCH (08:50)
[2019-03-12] MEDS: ASCORBIC ACID 500 MG TABLET PO SCH ×2 (08:51→20:19)
[2019-03-12] MEDS ORDERED: POTASSIUM CHLORIDE INJ 40 MEQ in DEXT 5% WATER 250 ML IV SCH (09:30)
[2019-03-12] MEDS ORDERED: MIDAZOLAM HCL 5 MG/5 ML VIAL ONE (10:51)
[2019-03-12] MEDS ORDERED: FENTANYL CITRATE/PF 50MCG/ML 2ML VIAL ONE (10:51)
[2019-03-12] MEDS ORDERED: MIDAZOLAM HCL 5 MG/5 ML VIAL IV PRN (11:00)
[2019-03-13] VITALS (14 sets, daily range): BP systolic 99–123; BP diastolic 48–73
[2019-03-13] MEDS: IPRATROPIUM/ALBUTEROL 0.5-3(2.5)MG/3ML NEB HHN SCH ×6 (00:49→20:18)
[2019-03-13] MEDS: ACETYLCYSTEINE 100MG/ML 10% VIAL 4ML INH SCH ×3 (00:49→16:04)
[2019-03-13] MEDS: PIPERACILLIN/TAZOBACTAM 3.375 G in DEXT 5% WATER 100 ML IV SCH ×4 (05:20→23:53)
[2019-03-13] MEDS: ASCORBIC ACID 500 MG TABLET PO SCH ×2 (08:49→21:18)
[2019-03-13] MEDS: ASPIRIN 325MG EC TABLET PO SCH (08:49)
[2019-03-13] MEDS: FAMOTIDINE 20MG TABLET PO SCH ×2 (08:49→21:18)
[2019-03-13] MEDS: ZINC SULFATE 220 MG ( 50 ) CAPSULE PO SCH (08:49)
[2019-03-13] MEDS: ONDANSETRON HCL 4MG/2ML INJ IV PRN (23:53)
[2019-03-14] VITALS (11 sets, daily range): BP systolic 85–114; BP diastolic 38–71
[2019-03-14] MEDS: ACETYLCYSTEINE 100MG/ML 10% VIAL 4ML INH SCH ×3 (00:13→15:00)
[2019-03-14] MEDS: IPRATROPIUM/ALBUTEROL 0.5-3(2.5)MG/3ML NEB HHN SCH ×6 (00:14→19:58)
[2019-03-14] MEDS: GUAIFENESIN 200MG/10ML SUGAR FREE UDC PO PRN (05:44)
[2019-03-14] MEDS: PIPERACILLIN/TAZOBACTAM 3.375 G in DEXT 5% WATER 100 ML IV SCH ×3 (05:44→17:03)
[2019-03-14] MEDS: ASCORBIC ACID 500 MG TABLET PO SCH ×2 (08:49→20:34)
[2019-03-14] MEDS: ZINC SULFATE 220 MG ( 50 ) CAPSULE PO SCH (08:49)
[2019-03-14] MEDS: ASPIRIN 325MG EC TABLET PO SCH (08:49)
[2019-03-14] MEDS: FAMOTIDINE 20MG TABLET PO SCH ×2 (08:49→20:31)
[2019-03-14] MEDS: ONDANSETRON HCL 4MG/2ML INJ IV PRN (20:34)
[2019-03-15] VITALS (9 sets, daily range): BP systolic 87–105; BP diastolic 45–67
[2019-03-15] MEDS: ACETYLCYSTEINE 100MG/ML 10% VIAL 4ML INH SCH ×3 (00:21→12:34)
[2019-03-15] MEDS: IPRATROPIUM/ALBUTEROL 0.5-3(2.5)MG/3ML NEB HHN SCH ×3 (00:21→12:34)
[2019-03-15] MEDS: FAMOTIDINE 20MG TABLET PO SCH (09:37)
[2019-03-15] MEDS: ASPIRIN 325MG EC TABLET PO SCH (09:37)
[2019-03-15] MEDS: ZINC SULFATE 220 MG ( 50 ) CAPSULE PO SCH (09:37)
[2019-03-15] MEDS: GUAIFENESIN 200MG/10ML SUGAR FREE UDC PO PRN (09:37)
[2019-03-15] MEDS: DOCUSATE SODIUM 100MG CAPSULE PO PRN (09:38)
[2019-03-15] MEDS: ASCORBIC ACID 500 MG TABLET PO SCH (09:38)
== END 2019-03-15 14:30 | DRG 720 ==
LOC: ER 09:57 → 6WST 15:04 → EDBEDREQ 15:09 → ENRESERV 16:15 → 5EST 03-07 14:57
PROVIDERS: ADMIT Internal Medicine; ATTEND Internal Medicine
PROC: 0DB68ZX Excision of Stomach, Via Natural or Artificial Opening Endoscopic, Diagnostic (ICD-10-PCS; principal; 2019-03-10)
PROC: 0DH63UZ Insertion of Feeding Device into Stomach, Percutaneous Approach (ICD-10-PCS; 2019-03-12)
DX: A41.51 Sepsis due to Escherichia coli [E. coli] (principal); J96.01 Acute respiratory failure with hypoxia; K72.00 Acute and subacute hepatic failure without coma; J69.0 Pneumonitis due to inhalation of food and vomit; L89.229 Pressure ulcer of left hip, unspecified stage; G92 Toxic encephalopathy; E44.0 Moderate protein-calorie malnutrition; K29.71 Gastritis, unspecified, with bleeding; R13.12 Dysphagia, oropharyngeal phase; G80.9 Cerebral palsy, unspecified; Z86.73 Personal history of transient ischemic attack (TIA), and cerebral infarction without residual deficits; N39.0 Urinary tract infection, site not specified; I11.9 Hypertensive heart disease without heart failure; D63.8 Anemia in other chronic diseases classified elsewhere; D75.89 Other specified diseases of blood and blood-forming organs; E77.8 Other disorders of glycoprotein metabolism; K44.9 Diaphragmatic hernia without obstruction or gangrene; E83.42 Hypomagnesemia; E87.1 Hypo-osmolality and hyponatremia; E87.6 Hypokalemia; Z79.899 Other long term (current) drug therapy; Z68.23 Body mass index [BMI] 23.0-23.9, adult
CPT/HCPCS: 36415; 36600; 71045; 74018; 76700; 80048; 80061; 80076; 80202; 81003; 82375; 82550; 82553; 82607; 82746; 82805; 82962; 83036; 83540; 83550; 83605; 83735; 83880; 84100; 84132; 84134; 84145; 84484; 86705; 86709; 86803; 87077; 87186; 87340; 88305; 88313; 92610; 93005; 93306; 93970; 94640; 99291; A6261; J1650; J1940; J2185; J2250; J2405; J2543; J2765; J3010; J3370; J3475; J3480; J7030; J7040; J7042; J7050; J7060; J7608; J7620; P9047

== ENCOUNTER 2020-01-23 15:44 | Inpatient (IN) | payer MEDICARE, MEDICAID ==
[2020-01-23] VITALS (22 sets, daily range): BP systolic 65–112; BP diastolic 20–60
[~2020-01-23] VITALS: Ht 165.1 cm; Wt 88.5 kg
[~2020-01-23 15:44] MED LIST: BACL-141 PO; DIPH50CA47 PO; FERR325T6 PO; OMEP20CA14 PO; RISP1TAB26 PO; SIMV10TA97 PO
[2020-01-23] MEDS ORDERED: SODIUM CHLORIDE 0.9% 1,000 ML IV ONE ×2 (15:53→16:00)
[2020-01-23] MEDS ORDERED: MIDAZOLAM HCL 2 MG/2 ML VIAL IV ONE (16:00)
[2020-01-23] MEDS ORDERED: MIDAZOLAM HCL 100 MG in DEXT 5% WATER 80 ML IV ONE (16:00)
[2020-01-23] MEDS ORDERED: MIDAZOLAM HCL 2 MG/2 ML VIAL ONE (16:00)
[2020-01-23] MEDS ORDERED: MIDAZOLAM HCL 100 MG in DEXT 5% WATER 80 ML IV NR (16:15)
[2020-01-23] MEDS ORDERED: ACETAMINOPHEN 650MG SUPP PR ONE ×2 (16:15→18:15)
[2020-01-23] MEDS ORDERED: VANCOMYCIN 1 G PREMIX 200 ML IV ONE (16:15)
[2020-01-23] MEDS ORDERED: PIPERACILLIN/TAZ 3.375G PREMIX 50 ML IV ONE (16:15)
[2020-01-23 16:23] LABS: CHLORIDE 111 mEq/L (98-107); CLARITY URINE TURBID (CLEAR); COLOR URINE DARK YELLOW (YELLOW); KETONES URINE NEGATIVE (NEGATIVE); LEUKOCYTE ESTERASE URINE 3+ (NEGATIVE); NITRITE URINE NEGATIVE (NEGATIVE); OCCULT BLOOD URINE 3+ (NEGATIVE); PH URINE >=9.0 (4.5-8.0); PROTEIN URINE 3+ (NEGATIVE); SPECIFIC GRAVITY URINE 1.017 (1.005-1.030)
[2020-01-23 16:39] LABS: EOSINOPHILS % 0.4 % (0.0-5.0); HEMATOCRIT. 40.1 % (42.0-52.0); HEMOGLOBIN. 12.5 g/dL (14.0-18.0); LYMPHOCYTES % 11.5 % (20.0-50.0); MEAN CORPUSCULAR VOLUME 96.6 fL (80.0-94.0); MONOCYTES % 1.5 % (2.0-8.0); NEUTROPHILS % 85.6 % (40.0-76.0); PLATELET 345 x1000/uL (130-400); RED BLOOD CELL COUNT 4.16 mill/uL (4.7-6.1); RED CELL DISTRIBUTION WIDTH 16.9 % (11.6-14.6)
[2020-01-23] MEDS ORDERED: MIDAZOLAM HCL 100 MG in DEXT 5% WATER 80 ML IV PRN ×3 (16:45→22:15)
[2020-01-23] MEDS ORDERED: IPRATROPIUM/ALBUTEROL 0.5-3(2.5)MG/3ML NEB HHN PRN (16:45)
[2020-01-23] MEDS ORDERED: FENTANYL CITRATE/PF 1,000 MCG in SODIUM CHLORIDE 0.9% 80 ML IV PRN ×2 (16:45→17:15)
[2020-01-23] MEDS ORDERED: PIPERACILLIN/TAZOBACTAM 2.25 G in DEXTROSE 5% WATER 50 ML IV SCH (16:45)
[2020-01-23] MEDS ORDERED: PHENYLEPHRINE 50 MG in DEXT 5% WATER 245 ML IV PRN ×2 (16:45→19:30)
[2020-01-23 16:48] LABS: BG BASE EXCESS -1.5 mmol/L (-2.0-2.0); BG CARBOXYHEMOGLOBIN 1.1 % (0.5-1.5); BG DEOXYHEMOGLOBIN 11.5 % (0.0-5.0); BG FRACTION INSPIRED OXYGEN 100; BG HCO3 ACT 24.8 mmol/L (22.0-26.0); BG METHEMOGLOBIN 0.1 % (0.0-1.5); BG OXYGEN SATURATION 88.4 % (92.0-98.5); BG OXYHEMOGLOBIN 87.3 % (94.0-97.0); BG PCO2 48.3 mmHg (35.0-45.0); BG PH 7.329 (7.350-7.450); BG PO2 59.2 mmHg (75.0-100.0); BG SAMPLE SITE RIGHT BRACHIAL; BG TOTAL HEMOGLOBIN 12.4 g/dL (12.0-18.0); BG VENT MODE VENT - AC
[2020-01-23] MEDS ORDERED: INSULIN REGULAR (HUMULIN R) 300UNITS/3ML IV ONE (17:00)
[2020-01-23] MEDS ORDERED: SODIUM BICARBONATE 8.4% 1 MEQ/ML 50ML SYR IV ONE (17:00)
[2020-01-23] MEDS ORDERED: DEXTROSE 50% WATER 50ML SYRINGE IV ONE (17:00)
[2020-01-23] MEDS ORDERED: CALCIUM GLUCONATE 1,000 MG in DEXT 5% WATER 100 ML IV ONE (17:00)
[2020-01-23] MEDS ORDERED: DEXTROSE 50% WATER 50ML SYRINGE IV NR (17:15)
[2020-01-23] MEDS ORDERED: INSULIN REGULAR (HUMULIN R) 300UNITS/3ML IV NR (17:15)
[2020-01-23] MEDS ORDERED: NOREPINEPHRINE 8 MG in DEXT 5% WATER 242 ML IV PRN (17:30)
[2020-01-23] MEDS ORDERED: ACETAMINOPHEN 325MG TABLET PO PRN (17:30)
[2020-01-23] MEDS ORDERED: ONDANSETRON HCL 4MG/2ML INJ IV PRN (17:30)
[2020-01-23 17:40] LABS: D-DIMER 3.92 mg/L FEU (<0.50); PROTHROMBIN TIME 10.9 sec (9.6-11.0)
[2020-01-23] MEDS ORDERED: NOREPINEPHRINE 8MG/250ML PMX 250 ML IV PRN (17:41)
[2020-01-23] MEDS ORDERED: PIPERACILLIN/TAZOBACTAM 3.375 G in DEXT 5% WATER 100 ML IV SCH (22:00)
[2020-01-23] MEDS ORDERED: PHENYLEPHRINE 100 MG in DEXT 5% WATER 240 ML IV PRN (22:14)
[2020-01-23] MEDS: DEXTROSE 5% WATER 1,000 ML IV SCH (22:30)
[2020-01-24] VITALS (116 sets, daily range): BP systolic 36–154; BP diastolic 15–102
[2020-01-24] MEDS: PHENYLEPHRINE 100 MG in DEXT 5% WATER 250 ML IV PRN ×3 (02:51→20:01)
[2020-01-24] MEDS: PIPERACILLIN/TAZOBACTAM 3.375 G in DEXT 5% WATER 100 ML IV SCH ×4 (03:06→17:56)
[2020-01-24] MEDS: EPINEPHRINE 10 MG in SODIUM CHLORIDE 0.9% 240 ML IV PRN ×7 (04:39→22:01)
[2020-01-24] MEDS: NOREPINEPHRINE 32 MG in DEXT 5% WATER 218 ML IV PRN ×3 (04:41→20:00)
[2020-01-24 05:48] LABS: HEMATOCRIT. 33.2 % (42.0-52.0); HEMOGLOBIN. 10.4 g/dL (14.0-18.0); MEAN CORPUSCULAR HEMOGLOBIN 29.9 pg (28.0-32.0); MEAN CORPUSCULAR VOLUME 95.7 fL (80.0-94.0); MEAN PLATELET VOLUME 11.6 fl (7.4-10.4); PLATELET 227 x1000/uL (130-400); RED BLOOD CELL COUNT 3.47 mill/uL (4.7-6.1); RED CELL DISTRIBUTION WIDTH 16.8 % (11.6-14.6)
[2020-01-24] MEDS ORDERED: VANCOMYCIN 1 G PREMIX 200 ML IV SCH ×2 (06:00)
[2020-01-24] MEDS: DEXTROSE 5% WATER 1,000 ML IV SCH ×2 (06:57→17:34)
[2020-01-24 08:38] LABS: BG BASE EXCESS 2.4 mmol/L (-2.0-2.0); BG CARBOXYHEMOGLOBIN 0.8 % (0.5-1.5); BG DEOXYHEMOGLOBIN 3.5 % (0.0-5.0); BG METHEMOGLOBIN 0.2 % (0.0-1.5); BG OXYGEN SATURATION 96.5 % (92.0-98.5); BG OXYHEMOGLOBIN 95.5 % (94.0-97.0); BG PCO2 47.9 mmHg (35.0-45.0); BG PH 7.385 (7.350-7.450); BG SAMPLE SITE LEFT RADIAL; BG TOTAL HEMOGLOBIN 11.9 g/dL (12.0-18.0); BG VENT MODE VENT - AC
[2020-01-24] MEDS: PANTOPRAZOLE SODIUM 40 MG/VIAL IV SCH (08:54)
[2020-01-24 10:40] LABS: BG BASE EXCESS 2.1 mmol/L (-2.0-2.0); BG CARBOXYHEMOGLOBIN 0.1 % (0.5-1.5); BG DEOXYHEMOGLOBIN 4.6 % (0.0-5.0); BG HCO3 ACT 27.5 mmol/L (22.0-26.0); BG METHEMOGLOBIN 0.1 % (0.0-1.5); BG OXYGEN SATURATION 95.4 % (92.0-98.5); BG OXYHEMOGLOBIN 95.2 % (94.0-97.0); BG PH 7.394 (7.350-7.450); BG PO2 73.1 mmHg (75.0-100.0); BG SAMPLE SITE LEFT RADIAL; BG TOTAL HEMOGLOBIN 12.6 g/dL (12.0-18.0); BG VENT MODE VENT- PRVC
[2020-01-24] MEDS ORDERED: SODIUM POLYSTYRENE SULFONATE 15 G/60 ML BOT PO SCH (11:00)
[2020-01-24] MEDS: VASOPRESSIN 20 UNIT in SODIUM CHLORIDE 0.9% 99 ML IV PRN ×2 (11:11→17:00)
[2020-01-24] MEDS ORDERED: SODIUM CHLORIDE 0.9% 500 ML IV SCH (12:00)
[2020-01-24] MEDS: IPRATROPIUM/ALBUTEROL 0.5-3(2.5)MG/3ML NEB HHN SCH ×3 (12:00→20:48)
[2020-01-24 12:56] LABS: NUCLEATED RED BLOOD CELLS 1 /100 WBC; PLATELET ESTIMATE NORMAL
[2020-01-24] MEDS ORDERED: SODIUM BICARBONATE 8.4% 1 MEQ/ML 50ML SYR IV NR ×2 (13:00→14:15)
[2020-01-24] MEDS ORDERED: DEXAMETHASONE 4MG/ML 1ML VIAL IV SCH (13:00)
[2020-01-24] MEDS ORDERED: DEXTROSE 50% WATER 50ML SYRINGE IV SCH (13:00)
[2020-01-24] MEDS ORDERED: INSULIN REGULAR (HUMULIN R) 300UNITS/3ML IV SCH (13:00)
[2020-01-24] MEDS: FENTANYL CITRATE/PF 1,000 MCG in SODIUM CHLORIDE 0.9% 80 ML IV PRN ×2 (13:38→21:33)
[2020-01-24 13:59] LABS: BG BASE EXCESS -7.4 mmol/L (-2.0-2.0); BG DEOXYHEMOGLOBIN 7.8 % (0.0-5.0); BG HCO3 ACT 17.8 mmol/L (22.0-26.0); BG METHEMOGLOBIN 0.3 % (0.0-1.5); BG OXYGEN SATURATION 92.2 % (92.0-98.5); BG OXYHEMOGLOBIN 91.9 % (94.0-97.0); BG PCO2 35.1 mmHg (35.0-45.0); BG PH 7.323 (7.350-7.450); BG SAMPLE SITE LEFT RADIAL; BG TOTAL HEMOGLOBIN 12.7 g/dL (12.0-18.0); BG VENT MODE VENT- PRVC
[2020-01-24] MEDS ORDERED: CALC-1098 MT (19:14)
[2020-01-24] MEDS ORDERED: DIAZ5TAB4 MT (19:22)
[2020-01-24] MEDS ORDERED: LACT10SO7 PO (19:22)
[2020-01-25] VITALS (113 sets, daily range): BP systolic 36–138; BP diastolic 15–98
[2020-01-25] MEDS: PIPERACILLIN/TAZOBACTAM 3.375 G in DEXT 5% WATER 100 ML IV SCH ×2 (00:14→05:45)
[2020-01-25] MEDS: EPINEPHRINE 10 MG in SODIUM CHLORIDE 0.9% 240 ML IV PRN ×11 (00:15→23:04)
[2020-01-25] MEDS: IPRATROPIUM/ALBUTEROL 0.5-3(2.5)MG/3ML NEB HHN SCH ×4 (00:36→21:01)
[2020-01-25] MEDS: VASOPRESSIN 20 UNIT in SODIUM CHLORIDE 0.9% 99 ML IV PRN ×3 (01:22→21:03)
[2020-01-25] MEDS: NOREPINEPHRINE 32 MG in DEXT 5% WATER 218 ML IV PRN ×3 (02:43→19:23)
[2020-01-25] MEDS: PHENYLEPHRINE 100 MG in DEXT 5% WATER 250 ML IV PRN ×3 (03:20→21:02)
[2020-01-25 05:20] LABS: HEMOGLOBIN. 12.8 g/dL (14.0-18.0); MEAN CORPUSCULAR HEMOGLOBIN 30.5 pg (28.0-32.0); MEAN CORPUSCULAR VOLUME 102.2 fL (80.0-94.0); MEAN PLATELET VOLUME 12.5 fl (7.4-10.4); PLATELET 106 x1000/uL (130-400); RED BLOOD CELL COUNT 4.21 mill/uL (4.7-6.1); RED CELL DISTRIBUTION WIDTH 17.7 % (11.6-14.6)
[2020-01-25 08:46] LABS: ATYPICAL LYMPHOCYTES 1; NUCLEATED RED BLOOD CELLS 2 /100 WBC
[2020-01-25 08:47] LABS: PLATELET ESTIMATE DECREASED
[2020-01-25] MEDS ORDERED: DEXAMETHASONE 4MG/ML 1ML VIAL IV SCH (09:00)
[2020-01-25 09:45] LABS: BG BASE EXCESS -13.9 mmol/L (-2.0-2.0); BG CARBOXYHEMOGLOBIN 0.3 % (0.5-1.5); BG DEOXYHEMOGLOBIN 3.2 % (0.0-5.0); BG HCO3 ACT 12.4 mmol/L (22.0-26.0); BG METHEMOGLOBIN 0.1 % (0.0-1.5); BG OXYGEN SATURATION 96.8 % (92.0-98.5); BG OXYHEMOGLOBIN 96.4 % (94.0-97.0); BG PCO2 30.6 mmHg (35.0-45.0); BG PH 7.226 (7.350-7.450); BG PO2 96.2 mmHg (75.0-100.0); BG SAMPLE SITE LEFT RADIAL; BG TOTAL HEMOGLOBIN 11.9 g/dL (12.0-18.0); BG VENT MODE VENT- PRVC
[2020-01-25] MEDS: DEXTROSE 5% WATER 1,000 ML IV SCH (09:51)
[2020-01-25] MEDS ORDERED: SODIUM BICARBONATE 8.4% 1 MEQ/ML 50ML SYR IV SCH (11:00)
[2020-01-25] MEDS: PANTOPRAZOLE SODIUM 40 MG/VIAL IV SCH (11:28)
[2020-01-25] MEDS: METHYLPREDNISOLONE SOD SUCC 125 MG/2 ML VIAL IV SCH ×2 (11:29→18:16)
[2020-01-25] MEDS: PIPERACILLIN/TAZOBACTAM 2.25 G in DEXTROSE 5% WATER 50 ML IV SCH ×2 (11:35→18:15)
[2020-01-25 12:30] LABS: PHOSPHORUS 5.9 mg/dL (2.5-4.9)
[2020-01-25] MEDS ORDERED: VANCOMYCIN 750 MG PREMIX 150 ML IV SCH (17:00)
[2020-01-25] MEDS: SODIUM BICARBONATE 150 MEQ in DEXTROSE 5% WATER 1,000 ML IV SCH (21:55)
[2020-01-26] VITALS (103 sets, daily range): BP systolic 42–152; BP diastolic 14–129
[2020-01-26] MEDS: IPRATROPIUM/ALBUTEROL 0.5-3(2.5)MG/3ML NEB HHN SCH ×4 (01:05→20:32)
[2020-01-26] MEDS: EPINEPHRINE 10 MG in SODIUM CHLORIDE 0.9% 240 ML IV PRN ×11 (01:26→23:23)
[2020-01-26] MEDS: FENTANYL CITRATE/PF 1,000 MCG in SODIUM CHLORIDE 0.9% 80 ML IV PRN ×2 (02:27→14:45)
[2020-01-26] MEDS: METHYLPREDNISOLONE SOD SUCC 125 MG/2 ML VIAL IV SCH ×3 (03:05→18:16)
[2020-01-26] MEDS: NOREPINEPHRINE 32 MG in DEXT 5% WATER 218 ML IV PRN ×3 (04:22→19:37)
[2020-01-26] MEDS: PHENYLEPHRINE 100 MG in DEXT 5% WATER 250 ML IV PRN ×3 (04:25→19:38)
[2020-01-26] MEDS: VASOPRESSIN 20 UNIT in SODIUM CHLORIDE 0.9% 99 ML IV PRN ×3 (05:36→23:22)
[2020-01-26] MEDS: PIPERACILLIN/TAZOBACTAM 2.25 G in DEXTROSE 5% WATER 50 ML IV SCH ×3 (05:37)
[2020-01-26] MEDS: PANTOPRAZOLE SODIUM 40 MG/VIAL IV SCH (09:18)
[2020-01-26 12:51] LABS: BG BASE EXCESS -10.7 mmol/L (-2.0-2.0); BG CARBOXYHEMOGLOBIN 0.5 % (0.5-1.5); BG DEOXYHEMOGLOBIN 46.8 % (0.0-5.0); BG FRACTION INSPIRED OXYGEN 100; BG HCO3 ACT 16.5 mmol/L (22.0-26.0); BG METHEMOGLOBIN 0.3 % (0.0-1.5); BG OXYGEN SATURATION 52.8 % (92.0-98.5); BG OXYHEMOGLOBIN 52.4 % (94.0-97.0); BG PH 7.213 (7.350-7.450); BG PO2 31.8 mmHg (75.0-100.0); BG SAMPLE SITE LEFT BRACHIAL; BG TOTAL HEMOGLOBIN 11.3 g/dL (12.0-18.0); BG VENT MODE VENT - PRVC
[2020-01-26] MEDS: CEFAZOLIN 1000MG PREMIX 50 ML IV SCH ×2 (12:58→20:31)
[2020-01-26] MEDS: SODIUM BICARBONATE 150 MEQ in DEXTROSE 5% WATER 1,000 ML IV SCH (13:57)
[2020-01-27] VITALS (34 sets, daily range): BP systolic 48–133; BP diastolic 31–79
[2020-01-27] MEDS: IPRATROPIUM/ALBUTEROL 0.5-3(2.5)MG/3ML NEB HHN SCH ×4 (00:53→20:06)
[2020-01-27] MEDS: EPINEPHRINE 10 MG in SODIUM CHLORIDE 0.9% 240 ML IV PRN ×11 (01:31→23:49)
[2020-01-27] MEDS: NOREPINEPHRINE 32 MG in DEXT 5% WATER 218 ML IV PRN (02:26)
[2020-01-27] MEDS: METHYLPREDNISOLONE SOD SUCC 125 MG/2 ML VIAL IV SCH ×3 (03:12→18:09)
[2020-01-27] MEDS: SODIUM BICARBONATE 150 MEQ in DEXTROSE 5% WATER 1,000 ML IV SCH ×2 (03:30→18:09)
[2020-01-27] MEDS: FENTANYL CITRATE/PF 1,000 MCG in SODIUM CHLORIDE 0.9% 80 ML IV PRN ×2 (03:31→17:46)
[2020-01-27] MEDS: PHENYLEPHRINE 100 MG in DEXT 5% WATER 250 ML IV PRN (03:32)
[2020-01-27] MEDS: CEFAZOLIN 1000MG PREMIX 50 ML IV SCH (03:57)
[2020-01-27] MEDS ORDERED: CALCIUM GLUCONATE 1,000 MG in DEXT 5% WATER 90 ML IV SCH (09:00)
[2020-01-27] MEDS ORDERED: SODIUM POLYSTYRENE SULFONATE 15 G/60 ML BOT GT SCH (09:00)
[2020-01-27] MEDS: VASOPRESSIN 20 UNIT in SODIUM CHLORIDE 0.9% 99 ML IV PRN ×2 (09:21→18:09)
[2020-01-27] MEDS: PANTOPRAZOLE SODIUM 40 MG/VIAL IV SCH (10:15)
[2020-01-27] MEDS: NOREPINEPHRINE 32 MG in SODIUM CHLORIDE 0.9% 218 ML IV PRN ×2 (11:11→19:13)
[2020-01-27 11:14] LABS: HEMATOCRIT. 39.2 % (42.0-52.0); HEMOGLOBIN. 11.7 g/dL (14.0-18.0); MEAN CORPUSCULAR HEMOGLOBIN 30.4 pg (28.0-32.0); MEAN CORPUSCULAR VOLUME 102.1 fL (80.0-94.0); RED BLOOD CELL COUNT 3.84 mill/uL (4.7-6.1); RED CELL DISTRIBUTION WIDTH 18.5 % (11.6-14.6)
[2020-01-27] MEDS: PHENYLEPHRINE 100 MG in SODIUM CHLORIDE 0.9% 240 ML IV PRN ×2 (12:34→21:28)
[2020-01-27 13:00] LABS: PLATELET ESTIMATE MARKEDLY DECREASED
[2020-01-27] MEDS ORDERED: PIPERACILLIN/TAZOBACTAM 2.25 G in DEXTROSE 5% WATER 50 ML IV SCH (13:00)
[2020-01-27 13:03] LABS: PLATELET 50 x1000/uL (130-400)
[2020-01-27] MEDS ORDERED: MEROPENEM 1,000 MG in SODIUM CHLORIDE 0.9% 100 ML IV SCH (13:30)
[2020-01-27] MEDS: MEROPENEM 1000MG in NORMAL SALINE 100ML IV SCH ×2 (15:53→22:12)
[2020-01-27 18:45] LABS: BG BASE EXCESS -9.2 mmol/L (-2.0-2.0); BG CARBOXYHEMOGLOBIN 0.7 % (0.5-1.5); BG DEOXYHEMOGLOBIN 4.8 % (0.0-5.0); BG FRACTION INSPIRED OXYGEN 100; BG HCO3 ACT 17.6 mmol/L (22.0-26.0); BG METHEMOGLOBIN 0.1 % (0.0-1.5); BG OXYGEN SATURATION 95.2 % (92.0-98.5); BG OXYHEMOGLOBIN 94.4 % (94.0-97.0); BG PCO2 41.6 mmHg (35.0-45.0); BG PH 7.244 (7.350-7.450); BG PO2 78.9 mmHg (75.0-100.0); BG TOTAL HEMOGLOBIN 10.5 g/dL (12.0-18.0); BG VENT MODE AC-PRVC
[2020-01-27] MEDS ORDERED: SODIUM BICARBONATE 8.4% 1 MEQ/ML 50ML SYR IV NR (19:44)
[2020-01-28] VITALS (8 sets, daily range): BP systolic 28–148; BP diastolic 14–107
[2020-01-28] MEDS: IPRATROPIUM/ALBUTEROL 0.5-3(2.5)MG/3ML NEB HHN SCH ×4 (01:51→21:02)
[2020-01-28] MEDS: EPINEPHRINE 10 MG in SODIUM CHLORIDE 0.9% 240 ML IV PRN ×7 (02:01→22:00)
[2020-01-28] MEDS: METHYLPREDNISOLONE SOD SUCC 125 MG/2 ML VIAL IV SCH ×2 (02:46→10:42)
[2020-01-28] MEDS: VASOPRESSIN 20 UNIT in SODIUM CHLORIDE 0.9% 99 ML IV PRN ×3 (03:07→21:00)
[2020-01-28] MEDS: NOREPINEPHRINE 32 MG in SODIUM CHLORIDE 0.9% 218 ML IV PRN ×2 (03:07→10:28)
[2020-01-28] MEDS: PHENYLEPHRINE 100 MG in SODIUM CHLORIDE 0.9% 240 ML IV PRN ×4 (04:12→23:22)
[2020-01-28] MEDS: SODIUM BICARBONATE 150 MEQ in DEXTROSE 5% WATER 1,000 ML IV SCH ×2 (04:35→17:16)
[2020-01-28 07:48] LABS: HEMATOCRIT. 29.9 % (42.0-52.0); HEMOGLOBIN. 9.5 g/dL (14.0-18.0); MEAN CORPUSCULAR HEMOGLOBIN 29.7 pg (28.0-32.0); MEAN CORPUSCULAR VOLUME 93.4 fL (80.0-94.0); MEAN PLATELET VOLUME 10.4 fl (7.4-10.4); RED CELL DISTRIBUTION WIDTH 17.1 % (11.6-14.6)
[2020-01-28 08:41] LABS: NUCLEATED RED BLOOD CELLS 9 /100 WBC
[2020-01-28 08:42] LABS: PLATELET ESTIMATE MARKEDLY DECREASED
[2020-01-28 08:43] LABS: PLATELET 28 x1000/uL (130-400)
[2020-01-28] MEDS: MEROPENEM 1000MG in NORMAL SALINE 100ML IV SCH ×2 (08:46→21:40)
[2020-01-28] MEDS: PANTOPRAZOLE SODIUM 40 MG/VIAL IV SCH (08:46)
[2020-01-28] MEDS ORDERED: FUROSEMIDE 40MG/4ML VIAL IVP NR (09:00)
[2020-01-28] MEDS: FENTANYL CITRATE/PF 1,000 MCG in SODIUM CHLORIDE 0.9% 80 ML IV PRN ×2 (10:58→22:49)
[2020-01-29] VITALS (41 sets, daily range): BP systolic 73–158; BP diastolic 41–101
[2020-01-29] MEDS: IPRATROPIUM/ALBUTEROL 0.5-3(2.5)MG/3ML NEB HHN SCH ×4 (00:35→20:43)
[2020-01-29] MEDS: EPINEPHRINE 10 MG in SODIUM CHLORIDE 0.9% 240 ML IV PRN ×10 (00:41→22:18)
[2020-01-29] MEDS: NOREPINEPHRINE 32 MG in SODIUM CHLORIDE 0.9% 218 ML IV PRN ×3 (03:38→20:07)
[2020-01-29] MEDS: SODIUM BICARBONATE 150 MEQ in DEXTROSE 5% WATER 1,000 ML IV SCH ×2 (07:05→17:57)
[2020-01-29] MEDS: VASOPRESSIN 20 UNIT in SODIUM CHLORIDE 0.9% 99 ML IV PRN ×2 (07:06→15:47)
[2020-01-29] MEDS: PHENYLEPHRINE 100 MG in SODIUM CHLORIDE 0.9% 240 ML IV PRN ×4 (07:06→23:55)
[2020-01-29] MEDS: PANTOPRAZOLE SODIUM 40 MG/VIAL IV SCH (10:08)
[2020-01-29] MEDS: MEROPENEM 1000MG in NORMAL SALINE 100ML IV SCH ×2 (10:08→21:30)
[2020-01-29] MEDS: FENTANYL CITRATE/PF 1,000 MCG in SODIUM CHLORIDE 0.9% 80 ML IV PRN (12:47)
[2020-01-29 13:39] LABS: BG FRACTION INSPIRED OXYGEN 100; BG HCO3 ACT 28.8 mmol/L (22.0-26.0); BG PCO2 46.9 mmHg (35.0-45.0); BG PH 7.406 (7.350-7.450); BG PO2 71.6 mmHg (75.0-100.0); BG SAMPLE SITE RIGHT BRACHIAL; BG VENT MODE VENT - PRVC
[2020-01-30] VITALS (21 sets, daily range): BP systolic 77–130; BP diastolic 50–82
[2020-01-30] MEDS: EPINEPHRINE 10 MG in SODIUM CHLORIDE 0.9% 240 ML IV PRN ×3 (01:19→08:17)
[2020-01-30] MEDS: IPRATROPIUM/ALBUTEROL 0.5-3(2.5)MG/3ML NEB HHN SCH ×2 (01:29→08:53)
[2020-01-30] MEDS ORDERED: FENTANYL CITRATE/PF 1,000 MCG in SODIUM CHLORIDE 0.9% 80 ML IV PRN (02:00)
[2020-01-30] MEDS: PHENYLEPHRINE 100 MG in SODIUM CHLORIDE 0.9% 240 ML IV PRN ×2 (04:02→08:35)
[2020-01-30] MEDS: NOREPINEPHRINE 32 MG in SODIUM CHLORIDE 0.9% 218 ML IV PRN (04:03)
[2020-01-30] MEDS: SODIUM BICARBONATE 150 MEQ in DEXTROSE 5% WATER 1,000 ML IV SCH (04:04)
[2020-01-30] MEDS: MEROPENEM 1000MG in NORMAL SALINE 100ML IV SCH (08:34)
[2020-01-30] MEDS: PANTOPRAZOLE SODIUM 40 MG/VIAL IV SCH (08:34)
[2020-01-30 09:07] LABS: BG BASE EXCESS -0.2 mmol/L (-2.0-2.0); BG DEOXYHEMOGLOBIN 1.8 % (0.0-5.0); BG FRACTION INSPIRED OXYGEN 100; BG HCO3 ACT 24.3 mmol/L (22.0-26.0); BG METHEMOGLOBIN 0.2 % (0.0-1.5); BG OXYGEN SATURATION 98.2 % (92.0-98.5); BG PCO2 38.7 mmHg (35.0-45.0); BG PH 7.416 (7.350-7.450); BG PO2 119.4 mmHg (75.0-100.0); BG SAMPLE SITE RIGHT BRACHIAL; BG TOTAL HEMOGLOBIN 8.3 g/dL (12.0-18.0); BG VENT MODE VENT- PRVC
[2020-01-30] MEDS ORDERED: MORPHINE SULFATE 2 MG/ML CPJ (NOT FOR IM USE) IV PRN (09:45)
== END 2020-01-30 12:24 | disposition expired | DRG 720 ==
LOC: ER 15:44 → MICUSO 16:22 → ENRESERV 17:08 → MICUSO 01-27 08:40
PROVIDERS: ADMIT Internal Medicine; ATTEND Internal Medicine
PROC: 5A1955Z Respiratory Ventilation, Greater than 96 Consecutive Hours (ICD-10-PCS; principal; 2020-01-24)
PROC: 0BH18EZ Insertion of Endotracheal Airway into Trachea, Via Natural or Artificial Opening Endoscopic (ICD-10-PCS; 2020-01-24)
DX: A41.9 Sepsis, unspecified organism (principal); D64.9 Anemia, unspecified; E43 Unspecified severe protein-calorie malnutrition; E87.0 Hyperosmolality and hypernatremia; E87.2 Acidosis; E87.5 Hyperkalemia; E87.8 Other disorders of electrolyte and fluid balance, not elsewhere classified; F84.0 Autistic disorder; G40.909 Epilepsy, unspecified, not intractable, without status epilepticus; G80.9 Cerebral palsy, unspecified; G93.41 Metabolic encephalopathy; I12.9 Hypertensive chronic kidney disease with stage 1 through stage 4 chronic kidney disease, or unspecified chronic kidney disease; J96.00 Acute respiratory failure, unspecified whether with hypoxia or hypercapnia; M62.82 Rhabdomyolysis; N17.0 Acute kidney failure with tubular necrosis; N18.9 Chronic kidney disease, unspecified; R65.21 Severe sepsis with septic shock; J69.0 Pneumonitis due to inhalation of food and vomit; N39.0 Urinary tract infection, site not specified; D69.59 Other secondary thrombocytopenia; E83.51 Hypocalcemia; E87.1 Hypo-osmolality and hyponatremia; Z20.828 Contact with and (suspected) exposure to other viral communicable diseases; J15.5 Pneumonia due to Escherichia coli; Z66 Do not resuscitate; R74.0 Nonspecific elevation of levels of transaminase and lactic acid dehydrogenase [LDH]; N17.9 Acute kidney failure, unspecified; R62.50 Unspecified lack of expected normal physiological development in childhood; Z74.01 Bed confinement status; Q02 Microcephaly; Z93.1 Gastrostomy status; Z86.73 Personal history of transient ischemic attack (TIA), and cerebral infarction without residual deficits; Z87.01 Personal history of pneumonia (recurrent); Z79.899 Other long term (current) drug therapy; Z68.32 Body mass index [BMI] 32.0-32.9, adult; Z87.440 Personal history of urinary (tract) infections
CPT/HCPCS: 36415; 36600; 71045; 80048; 80053; 80202; 81003; 82374; 82375; 82550; 82728; 82805; 83036; 83605; 83735; 83880; 84100; 84132; 84484; 85025; 85379; 86140; 87070; 87077; 87186; 87635; 93005; 94002; 94003; 94640; 99291; C9113; J0610; J0690; J1100; J1815; J1940; J2185; J2250; J2370; J2543; J2930; J3010; J3370; J3490; J7030; J7050; J7060; J7070